=== PATIENT | male | born 1995 | race Asian ===

== ENCOUNTER → 2022-02-22 | Outpatient (CLI) | payer MEDICAID ==
[2022-02-22 16:13] LABS: BASO % 0.2 % (0.0-2.0); EOS # 0.1 K/mm3 (0.0-0.7); GRAN # 5.2 K/mm3 (1.4-6.5); GRAN % 63.4 % (42.2-75.2); HEMATOCRIT 46.4 % (42.0-52.0); HEMOGLOBIN 15.7 g/dl (13.5-18.0); LYMPH % 24.1 % (20.0-51.0); MEAN CELL VOLUME 83 fl (80.0-100.0); MEAN CORPUSCULAR HEMOGLOBIN 28 pg (27-31); MEAN CORPUSCULAR HGB CONC 34 g/dl (33.0-37.0); MEAN PLATELET VOLUME 9.2 fl (7.4-10.4); MONO # 0.9 K/mm3 (0.1-0.6); MONO % 11.1 % (1.7-9.3); PLATELET COUNT 137 K/mm3 (130-400); RED BLOOD COUNT 5.58 M/mm3 (4.20-5.60); REDCELL DISTRIBUTION WIDTH-CV 12.1 % (11.5-14.5)
[2022-02-22 16:27] LABS: ALBUMIN 4.4 gm/dL (3.5-5.0); BILIRUBIN,TOTAL 0.8 mg/dL (0.2-1.2); CALCIUM 9.2 mg/dL (8.4-10.2); CREATININE, serum 1.02 mg/dL (0.72-1.25); TOTAL PROTEIN 7.8 gm/dL (6.2-8.1)
== END ==
LOC: COL.LAB 15:50
PROVIDERS: Physician Assistant
DX: J40 Bronchitis, not specified as acute or chronic (principal)

== ENCOUNTER → 2022-03-03 | Outpatient (CLI) | payer MEDICAID ==
[2022-03-04 17:02] LABS: TB GOLD INTERPRETATION Negative (Negative)
== END ==
LOC: COL.LAB 14:27
PROVIDERS: Registered Nurse
DX: R05.9 Cough, unspecified (principal)

== ENCOUNTER 2022-06-10 20:10 | Emergency (ER) | payer MEDICAID ==
[~2022-06-10] VITALS: Ht 152.4 cm; Wt 75.0 kg
[2022-06-10 20:22] VITALS: BP 110/71; PULSE 81; TEMP 96.8
== END 2022-06-10 21:50 | disposition home or self-care (01) ==
LOC: COL.ER 20:10
DX: S61.210A Laceration without foreign body of right index finger without damage to nail, initial encounter (principal); W56.59XA Other contact with other fish, initial encounter; Y93.G3 Activity, cooking and baking